=== PATIENT | female | born 1990 | race Caucasian/White ===

== ENCOUNTER 2018-04-01 16:28 | Inpatient (IN) ==
[2018-04-01] MEDS ORDERED: ZALEPLON 5 MG CAPSULE PO PRN (16:55)
[2018-04-01] MEDS: LACTATED RINGERS 1,000 ML IV SCH (17:00)
[2018-04-01 17:22] LABS: Basophils % 0.3 % (0.0-0.8); Eosinophils # 0.1 10*3/uL (0.0-0.87); Eosinophils % 1.1 % (0.00-10.9); Hematocrit 37.3 VOL% (35.7-47.0); Hemoglobin 12.2 GM/DL (12.0-16.0); Immature Granulocytes % 0.9 %; Immature Granulocytes Absolute 0.11 #; Lymphocytes # 1.8 10*3/uL (1.4-4.0); Lymphocytes % 14.5 % (21.3-54.2); Mean Corpuscular HGB Conc 32.7 GM/DL (32-36); Mean Corpuscular Hemoglobin 30 PG (27-34); Mean Corpuscular Volume 90.3 FL (87-102); Mean Platelet Volume 10.7 FL (9.6-12.0); Monocytes % 8.1 % (1.7-12.7); Neutrophils # 9.3 10*3/uL (1.4-7.4); Neutrophils % 75.1 % (38.7-73.9); Platelet Count 281 T/CUMM (130-400); Red Blood Count 4.13 MC/CUMM (3.8-5.5); Red Cell Distribution Width 13.9 % (9.3-17.3); White Blood Count 12.4 T/CUMM (4-12)
[2018-04-01 17:33] LABS: INR 0.9; PT Patient Result 9.5 SECS; Partial Thromboplastin Time 26.1 SECS (0-40)
[2018-04-01 17:45] LABS: Bilirubin,Total 0.4 MG/DL (0.2-1.0); Calcium 8.5 MG/DL (8.5-10.1); Osmolality,Calculated 269.8 MOS/KG (273-304); Potassium 3.5 MMOL/L (3.5-5.1); Total Protein 7.1 G/DL (6.4-8.3)
[2018-04-01 18:22] LABS: Bilirubin,Total < 0.39 MG/DL (0.2-1.0); Uric Acid 3.1 MG/DL (2.6-6.0)
[2018-04-01] MEDS: LABETALOL 100 MG TABLET PO SCH (21:02)
[2018-04-01] MEDS ORDERED: ACETAMINOPHEN 500 MG TABLET PO PRN (22:38)
[2018-04-02] MEDS: LACTATED RINGERS 1,000 ML IV SCH ×2 (05:13→08:12)
[2018-04-02] MEDS ORDERED: OXYTOCIN 10 UNIT/ML VIAL IM ONE (07:00)
[2018-04-02] MEDS ORDERED: OXYTOCIN/LR 30 UNIT/1,000 ML BAG IV ONE (07:00)
[2018-04-02] MEDS ORDERED: CITRIC ACID/SODIUM CITRATE 30 ML UDCUP PO ONE (07:00)
[2018-04-02] MEDS ORDERED: FAMOTIDINE 20 MG/2 ML VIAL IV ONE (07:00)
[2018-04-02] MEDS ORDERED: ceFAZolin 2,000 MG in PREMIX 1 EACH IV ONE (07:30)
[2018-04-02] MEDS: LABETALOL 100 MG TABLET PO SCH ×2 (08:02→20:15)
[2018-04-02 09:18] LABS: Cord Arterial Blood HCO3 24.1 MMOL/L
[2018-04-02 09:21] LABS: Cord Venous Blood PCO2 42.2 MMHG; Cord Venous Blood PO2 30.4 MMHG
[2018-04-02 09:27] LABS: Apearance,Urine CLEAR (Clear); Bilirubin,Urine Negative (Negative); Blood, Urine Negative (Negative); Glucose,Urine (UA) Negative (Negative); Ketones,Urine 5 mg/dL (Negative); Mucus,Urine Occasional /LPF (Occasional); Nitrite,Urine Negative (Negative); Protein,Urine Negative; RBC,Urine 1 /HPF (0-4); Urine Color Yellow (Yellow); Urine Specific Gravity 1.015 (1.001-1.035); Urine Urobilinogen < 2.0 EU/DL (0.2-1.0); WBC,Urine 1 /HPF (0-6)
[2018-04-02] MEDS ORDERED: ONDANSETRON 4 MG/2 ML VIAL IV PRN (09:32)
[2018-04-02] MEDS ORDERED: SIMETHICONE CHEW 80 MG TABLET PO PRN (09:32)
[2018-04-02] MEDS ORDERED: RHO(D) IMMUNE GLOBULIN 300 MCG SYRINGE IM ONE (09:32)
[2018-04-02] MEDS ORDERED: OXYTOCIN/LR 20 UNIT/1,000 ML BAG IV ONE (09:32)
[2018-04-02] MEDS ORDERED: ACETAMINOPHEN 325 MG TABLET PO PRN (09:32)
[2018-04-02] MEDS ORDERED: PROPOFOL 200 MG/20 ML VIAL IV ONE (09:40)
[2018-04-02] MEDS ORDERED: BUPIVACAINE SPINAL 0.75% 2 ML AMP SPINAL ONE (09:41)
[2018-04-02] MEDS ORDERED: MORPHINE 10 MG/10 ML VIAL ONE (09:41)
[2018-04-02] MEDS ORDERED: PHENYLEPHRINE 1 MG/10 ML SYRINGE IV ONE (09:41)
[2018-04-02] MEDS ORDERED: ONDANSETRON 4 MG/2 ML VIAL ONE (09:41)
[2018-04-02] MEDS ORDERED: ceFAZolin 1,000 MG in SYRINGE 1 EACH IV SCH (10:00)
[2018-04-02] MEDS ORDERED: LACTATED RINGERS 1,000 ML IV SCH (10:00)
[2018-04-02] MEDS ORDERED: PROMETHAZINE 25 MG/1 ML VIAL IM PRN (19:04)
[2018-04-02] MEDS: IBUPROFEN 800 MG TABLET PO PRN (23:35)
[2018-04-03] MEDS: DOCUSATE SODIUM 100 MG CAPSULE PO SCH ×3 (00:30→20:49)
[2018-04-03] MEDS ORDERED: ceFAZolin 1,000 MG in SYRINGE 1 EACH IV SCH (04:30)
[2018-04-03 05:37] LABS: Basophils # 0.1 10*3/uL (0.0-0.2); Basophils % 0.4 % (0.0-0.8); Eosinophils # 0.2 10*3/uL (0.0-0.87); Eosinophils % 1.5 % (0.00-10.9); Hematocrit 33.4 VOL% (35.7-47.0); Hemoglobin 10.6 GM/DL (12.0-16.0); Immature Granulocytes % 0.9 %; Immature Granulocytes Absolute 0.12 #; Lymphocytes # 1.8 10*3/uL (1.4-4.0); Lymphocytes % 13.6 % (21.3-54.2); Mean Corpuscular HGB Conc 31.7 GM/DL (32-36); Mean Corpuscular Hemoglobin 29 PG (27-34); Mean Corpuscular Volume 92.8 FL (87-102); Mean Platelet Volume 10.6 FL (9.6-12.0); Monocytes % 7.8 % (1.7-12.7); Neutrophils # 10.1 10*3/uL (1.4-7.4); Neutrophils % 75.8 % (38.7-73.9); Platelet Count 215 T/CUMM (130-400); Red Cell Distribution Width 14.2 % (9.3-17.3); White Blood Count 13.3 T/CUMM (4-12)
[2018-04-03] MEDS: LABETALOL 100 MG TABLET PO SCH ×2 (08:47→20:49)
[2018-04-03] MEDS: MULTIVITAMIN (PRENATAL) TABLET PO SCH (08:47)
[2018-04-03] MEDS: MAGNESIUM HYDROXIDE SUSP 30 ML UDCUP PO PRN ×2 (08:48→22:52)
[2018-04-03] MEDS: IBUPROFEN 800 MG TABLET PO PRN ×2 (09:42→19:42)
[2018-04-03] MEDS ORDERED: INFLUENZA VIRUS VACCINE 0.5 ML SYRINGE IM ONE (16:57)
[2018-04-03] MEDS ORDERED: guaiFENesin 200 MG/10 ML UDCUP PO PRN (19:31)
[2018-04-03] MEDS ORDERED: BISACODYL 10 MG SUPP RECTAL PRN (19:31)
[2018-04-03] MEDS ORDERED: METOCLOPRAMIDE 10 MG TABLET PO PRN (23:19)
[2018-04-04] MEDS ORDERED: IBUPROFEN 800 MG TABLET PO PRN (01:10)
[2018-04-04 07:47] VITALS: BP 124/70
[2018-04-04] MEDS: DOCUSATE SODIUM 100 MG CAPSULE PO SCH (08:45)
[2018-04-04] MEDS: LABETALOL 100 MG TABLET PO SCH (08:45)
[2018-04-04] MEDS: MULTIVITAMIN (PRENATAL) TABLET PO SCH (08:45)
[2018-04-04] MEDS ORDERED: INFLUENZA VIRUS VACCINE 0.5 ML SYRINGE IM ONE (09:40)
[2018-04-04] MEDS ORDERED: DIPH/TET/ACEL PERT BOOSTER VACCINE 0.5 ML VIAL IM ONE (09:40)
== END 2018-04-04 11:45 | disposition home or self-care (01) | DRG 788 ==
LOC: N.LDOUT 16:28 → N.LD 16:33 → N.OB 04-02 13:14
PROVIDERS: ADMIT Obstetrics & Gynecology; ATTEND Obstetrics & Gynecology
PROC: LDCSECT (ICD-10-PCS; 2018-04-02 09:00)